=== PATIENT | male | born 1975 | race Caucasian/White ===

== ENCOUNTER 2018-07-15 09:03 | Day surgery (SDC) | payer OTHER ==
[2018-07-12 17:11] VITALS: BMI 24.2
[~2018-07-15] VITALS: Ht 170.2 cm; Wt 77.8 kg
[2018-07-15] VITALS (18 sets, daily range): BP systolic 120–178; BP diastolic 61–99; PULSE 78–99; RESP 14–20; Ht 170.2 cm; Wt 77.8 kg
[~2018-07-15 09:03] MED LIST: CEFAZOLIN 2 GM/50 ML (PMX) 50 ML IVPB ONE; SOD CHLORIDE 0.9% 1,000 ML IV SCH
--- NOTE | 2018-07-15 09:58 | PREAC ---
Date/Time of Note Date/Time of Note DATE: 07/15/18 TIME: 09:57 Anesthesia Eval and Record Evaluation Time Pre-Procedure Interview DATE: 07/15/18 TIME: 09:57 Age 43 Sex male NPO: 8 hrs Preoperative diagnosis b/l inguinal ghernia Planned procedure lap b/l inguinal herniA REPAIR Past Medical History Past Medical History: None Surgery & Anesthesia Issues No known issue Meds Anticoagulation: No Beta Chevy within 24 hr: No Reason Beta Chevy not given: Pt. not on B-Chevy No Active Prescriptions or Reported Meds Current Medications Sodium Chloride 1,000 ml @ 75 mls/hr [id number] IV ; Start 07/15/18 at 07:00; Stop 07/15/18 at 20:19 Meds reviewed: Yes Allergies Coded Allergies: No Known Drug Allergies (Unverified Allergy, Unknown, 07/15/18) Allergies Reviewed: Yes Labs/Studies Labs Reviewed: Reviewed by anesthesiologist test: Negative Studies: ECG Pre-procedure Exam Last vitals Vital Signs Date Temp Pulse Resp B/P (MAP) Pulse Ox O2 O2 Flow FiO2 Time Delivery Rate 07/15/18 97.3 84 18 138/84 97 Room Air 09:51 (102) Airway: Adequate mouth opening, Adequate thyromental dist Mallampati: Mallampati II Teeth: Normal Lung: Normal Heart: Normal ASA Physical Status ASA physical status: 2 Emergency: None Planned Anesthetic General/MAC: ETT Nerve block: TAP Pre-operative Attestations Prior to commencing anesthesia and surgery, the patient was re-evaluated, there was verification of: *The patient's identity *The results of appropriate recent lab work and preoperative vital signs *The above evaluation not changing prior to induction *Anesthetic plan, risk benefits, alternative and complications discussed with patient/family; questions answered; patient/family understands, accepts and wishes to proceed. JAMEEL HOWELL Jul 15, 2018 09:58
[2018-07-15] MEDS ORDERED: DIPHENHYDRAMINE 50 MG INJ IV PRN (10:00)
[2018-07-15] MEDS ORDERED: ONDANSETRON 4 MG INJ IV PRN ×2 (10:00→12:30)
[2018-07-15] MEDS ORDERED: METOCLOPRAMIDE 10 MG INJ IV PRN (10:00)
[2018-07-15] MEDS ORDERED: HYDROmorphONE 1 MG/5 ML IV SYRINGE IV PRN ×3 (10:00)
[2018-07-15] MEDS ORDERED: MEPERIDINE 25 MG INJ IV PRN (10:00)
[2018-07-15] MEDS ORDERED: ALBUTEROL 0.083% (NEB) 2.5 MG/3 ML AMP HHN PRN (10:00)
[2018-07-15] MEDS ORDERED: OXYCODONE/ACETAMINOPHEN (5/325) TAB PO PRN ×3 (10:00→12:30)
[2018-07-15] MEDS ORDERED: FENTAnyl 50 MCG/ML VIAL IV PRN ×3 (10:00)
[2018-07-15] MEDS ORDERED: ROPIVACAINE 0.5 % 30 ML VIAL ONE (10:12)
[2018-07-15] MEDS ORDERED: FENTAnyl 50 MCG/ML VIAL ONE ×5 (10:12→11:43)
[2018-07-15] MEDS ORDERED: MIDAZOLAM 1 MG/ML 2 ML INJ ONE (10:19)
[2018-07-15] MEDS ORDERED: BUPIVACAINE 0.5%/EPI (SDV) 30 ML INJ ONE (10:33)
[2018-07-15] MEDS ORDERED: LABETALOL HCL 20MG INJ ONE (10:34)
[2018-07-15] MEDS ORDERED: CEFAZOLIN 1 GM INJ ONE (10:34)
[2018-07-15] MEDS ORDERED: ROCURONIUM 50 MG INJ ONE (10:34)
[2018-07-15] MEDS ORDERED: LIDOCAINE 100 MG SYRINGE ONE (10:34)
[2018-07-15] MEDS ORDERED: SUCCINYLCHOLINE CHLORIDE 100 MG/5 ML SYG IV ONE (10:34)
[2018-07-15] MEDS ORDERED: POLYMYXIN/BACITRACIN 1L IRRIG IRR ONE ×2 (10:43→12:40)
[2018-07-15] MEDS ORDERED: POLYMYXIN/BACITRACIN 1L IRRIG ONE (10:54)
[2018-07-15] MEDS ORDERED: HYDROmorphONE 2 MG/ML SYG ONE (12:04)
[2018-07-15] MEDS ORDERED: KETOROLAC 30 MG INJ IV PRN (12:30)
[2018-07-15] MEDS ORDERED: IBUPROFEN 600 MG TAB PO PRN (12:30)
[2018-07-15] MEDS ORDERED: morphine 2 MG INJ IV PRN (12:30)
--- NOTE | 2018-07-15 12:33 | OPR ---
Date/Time of Note Date/Time of Note DATE: 07/15/18 TIME: 12:23 Operative Report Procedure Date: Jul 15, 2018 Preoperative Diagnosis Bilateral inguinal hernias without obstruction or gangrene Postoperative Diagnosis Bilateral inguinal hernias without obstruction or gangrene Operation/Procedure Performed 1. Laparoscopic bilateral inguinal hernia repair 2. Bilateral ilioinguinal nerve block Surgeon see signature line Thermocouple Tester None Anesthesia Type: general Anesthesiologist: JAMEEL HOWELL Estimated Blood Loss: minimal Transfusion none Specimen None Grafts/Implants Covidien Symbotex mesh 10 x 15 cm (x2) Complications none Pt Condition Post Procedure: stable Disposition: PACU Indications The patient is a 43-year-old [place] male who presented to the office complaining of a bulge of the bilateral groins. He was diagnosed on clinical exam as having bilateral inguinal hernias. These were confirmed via ultrasound. The patient was scheduled for laparoscopic bilateral inguinal hernia repair with mesh; possible open to prevent sequelae of hernia disease which include, but are not limited to: Incarceration and strangulation. All risks and benefits of the procedure including but not limited to: Wound infection, excessive bleeding, postoperative seroma/hematoma formation, nerve injury which may be temporary versus permanent, injury to the reproductive organs including the vas deferens and the testicle which may lead to testicular atrophy, injury to intra- abdominal organs necessitating subsequent operation, hernia recurrence, chronic pain, etc. were all explained to the patient full detail. The patient fully understood and wished to proceed with the procedure. Informed consent was therefore obtained. Procedure Description The patient was brought to the operating room and placed supine on the operating table. Bilateral sequential compression devices were placed on both lower extremities and a dose of prophylactic broad-spectrum perioperative intravenous antibiotics was given. After the induction of smooth general endotracheal anesthesia the patient's abdomen, groins and scrotum were prepped and draped in standard surgical fashion. A supraumbilical incision was made using an 11 blade scalpel and a Veress needle was used to access the intra-abdominal cavity atraumatically. Pneumoperitoneum was obtained and the Veress needle was exchanged for a 12 mm trocar through which a. 5 mm 30 laparoscope was placed. Diagnostic laparoscopy showed moderate sized direct inguinal hernia defects bilaterally, left greater than right. There was no indirect inguinal hernia defects bilaterally. There was no other intra-abdominal pathology. Two further working ports were placed. They were both 5 mm ports placed at the level of the umbilicus in the right and left midclavicular lines. All port sites were anesthetized with 0.5% Marcaine with epinephrine prior to incision. The patient was then placed in Trendelenburg position. Attention was first turned towards repair of the right inguinal hernia. Starting from the anterior superior iliac spine on the right side the peritoneum was mobilized off of the underlying transversalis fascia to the level of the right median umbilical ligament. Dissection was continued medially and Wesly's ligament and the pubis were identified. The hernia sac and preperitoneal fat within it was then reduced back into the intra-abdominal cavity and dissected off of the spermatic cord. The spermatic cord and its structures were identified and preserved throughout the entirety of the procedure. Attention was then turned towards repair of the left inguinal hernia. Starting from the anterior superior iliac spine on the left side the peritoneum was mobilized off of the underlying transversalis fascia to the level of the left median umbilical ligament. Dissection was continued medially and Wesly's ligament and the pubis were identified. The hernia sac and preperitoneal fat within it was then reduced back into the intra-abdominal cavity and dissected off of the spermatic cord. The spermatic cord and its structures were identified and preserved throughout the entirety of the procedure. Once the hernia sacs were completely reduced back into the abdominal cavity and dissected off of the spermatic cord the direct hernia sacs were inverted and tacked to Wesly's ligament using the secure strap tacker. Two 10 x 15 cm pieces of Covidien Symbotex mesh were then used to repair the hernia defects bilaterally. The meshes covered all possible openings of the myopectineal orifice. The meshes were soaked in antibiotic containing irrigation prior to inserting it into the field. The meshes were then secured in place using a secure strap tacker. With the repairs complete hemostasis was inspected for and noted to be total. Pneumoperitoneum was then decreased to 8 mmHg and the peritoneum on the left and right side were reapproximated over the meshes using a secure strap tacker. Once this was complete pneumoperitoneum was released and all trocars were withdrawn under direct vision. The fascia of the umbilical port site was reapproximated using a 0 Vicryl suture in [id number] fashion. Subcutaneous tissues were irrigated with more irrigation. At this point attention was turned to the bilateral ilioinguinal nerve blocks. 10 mL of 0.25% Marcaine with epinephrine were injected in a radial fashion proximally 2 cm medial and inferior to the right and left anterior superior iliac spines. Once this was completed the skin of the incision sites was reapproximated using 4-0 Monocryl sutures in subcuticular fashion. Incisions were cleaned and Dermabond was applied. The patient was awoken from anesthesia and transported to the recovery room in stable condition. Both testicles were palpated at the end of the case and noted to be in their anatomical position. All counts were correct at the end of the case x 2. BOBY LUX MD Jul 15, 2018 12:33
--- NOTE | 2018-07-15 18:03 | PAC ---
Date/Time of Note Date/Time of Note DATE: 07/15/18 TIME: 18:03 Post-Anesthesia Notes Post-Anesthesia Note Last documented vital signs Vital Signs Date Temp Pulse Resp B/P (MAP) Pulse Ox O2 O2 Flow FiO2 Time Delivery Rate 07/15/18 97.4 87 16 133/61 94 14:11 (85) 07/15/18 Room Air 13:55 07/15/18 2.0 12:42 Activity: WNL Respiratory function: WNL Cardiovascular function: WNL Mental status: Baseline Pain reasonably controlled: Yes Hydration appropriate: Yes Nausea/Vomiting absent: Yes JAMEEL HOWELL Jul 15, 2018 18:03
== END 2018-07-15 16:52 | disposition home or self-care (01) ==
LOC: SDS 09:03
PROVIDERS: ATTEND Surgery
DX: K40.20 Bilateral inguinal hernia, without obstruction or gangrene, not specified as recurrent (principal)
CPT/HCPCS: 49650; J0690; J1170; J2001; J2175; J2250; J2405; J2795; J3010; Z7610; C1781